=== PATIENT | female | born 1975 | race American Indian/Alaskan Native ===

== ENCOUNTER 2019-01-29 05:56 | Day surgery (SDC) | payer OTHER ==
[2019-01-29 18:08] VITALS: BP 114/78
== END 2019-01-29 18:25 | disposition home or self-care (01) ==
LOC: OR 05:56
PROVIDERS: ATTEND Plastic Surgery
DX: Z41.1 Encounter for cosmetic surgery (principal); J45.909 Unspecified asthma, uncomplicated; G47.30 Sleep apnea, unspecified; E66.9 Obesity, unspecified; M19.90 Unspecified osteoarthritis, unspecified site; Z91.013 Allergy to seafood; Z91.041 Radiographic dye allergy status; Z79.899 Other long term (current) drug therapy; Z86.718 Personal history of other venous thrombosis and embolism; Z94.4 Liver transplant status; Z68.32 Body mass index [BMI] 32.0-32.9, adult; Z72.89 Other problems related to lifestyle; Z98.890 Other specified postprocedural states; Z88.8 Allergy status to other drugs, medicaments and biological substances; Z86.2 Personal history of diseases of the blood and blood-forming organs and certain disorders involving the immune mechanism
CPT/HCPCS: 15877; 19340; 36415; 80074; 84703; 87806; 88305; J0171; J0690; J1100; J1170; J1580; J2250; J2370; J2405; J2704; J2710; J3010; J7030; J7120